=== PATIENT | male | born 1985 | race Caucasian/White ===

== ENCOUNTER 2023-06-12 08:29 | Outpatient (CLI) | payer BC, SELFPAY | END 2023-06-12 08:30 | disposition home or self-care (01) | PROVIDERS: PCP Family Medicine; Visit Provider Family Medicine | DX: Z00.00 Encounter for general adult medical examination without abnormal findings (principal); Z13.6 Encounter for screening for cardiovascular disorders; Z13.1 Encounter for screening for diabetes mellitus | CPT/HCPCS: 80048; 80061 ==

== ENCOUNTER 2024-07-01 13:18 | Outpatient (CLI) | payer BC, SELFPAY ==
--- OUTSIDE RECORDS SUMMARY | 2024-07-01 13:25 | XMS_ITS | Clinical Summary ---
Author Organization [facility] Address [place], [place] [address] Care Team Providers Care Refractory Products Supervisor Name Role Phone Pcp, No Primary Care Provider Unavailabl e Allergies No known active allergies Medications Medication Sig Dispensed Refills Start Date End Date Status fluticasone (50 mcg per actuation) nasal solution (FLONASE)Indications: Post-nasal drip Inhale 1 [place] into both nostrils once daily. 1 Bottle 0 08/01/2015 Active Immunizations Name Administration Dates Next Due Tdap 01/28/2011 Social History Tobacco Use Types Packs/Day Years Used Date Smoking Tobacco: Never Smokeless Tobacco: Never Tobacco Cessation:Counseling Given: Yes Alcohol Use Standard Drinks/Week Comments Not Asked 0 (1 standard drink = 0.6 oz pur e alcohol) Sex and Gender Information Value Date Recorded Sex Assigned at Not on file Gender Identity Not on file Sexual Orientation Not on file Obstetrics History Last Filed Vital Signs Vital Sign Reading Time Taken Comments Blood Pressure 119/77 03/31/2023 4:14 PM CDT tow er Pulse 83 03/31/2023 4:14 PM CDT Temperature 36.9 ??C (98.5 ??F) 08/01/2015 4:45 PM CD T Respiratory Rate 16 05/24/2015 3:07 PM CDT Oxygen Saturation 97% 03/31/2023 4:14 PM CDT Inhaled Oxygen Concentration - - Weight 112 kg (247 lb) 03/31/2023 4:14 PM CDT Height - - Body Mass Index - - Plan of Treatment Health Maintenance Due Date Last Done Comments Depression screening for age 12+ 1998 HIV for age 15-65 2001 BMI (ht and wt on same day) for age 18+ 2004 Hepatitis C screening for ag e 18-79 2004 Tetanus booster 01/28/2021 01/28/2011 Lipids for age 35-44 2021 COVID-19 vaccine series (2022- season) 2023 Influenza for age 9-49 07/24/2024 Tdap Completed 01/28/2011 Pneumococcal series for age 6-64 Aged Out No longer eligible based on patient's age to complete this topic Care Teams Refractory Products Supervisor Relationship Specialty Start Date End Date Pcp, No . PCP - General 05/17/15
--- OUTSIDE RECORDS SUMMARY | 2024-07-01 13:25 | XMS_ITS | Referral Summary ---
Author Organization [facility] Address [address] [place] [id number] Care Team Providers Care Attractions Associate Name Role Phone No Ref-Primary, Physician Primary Care Provider Allergies No known active allergies Medications Medication Sig Dispensed Refills Start Date End Date Status benzonatate (TESSALON) 100 MG capsule TAKE 1 CAPSULE BY MOUTH THREE TIMES A DAY NEEDED *DO NOT BREAK CHEW, DISSOLVE, CUT, OR CRUSH* 0 04/17/2019 Active fluticasone (FLONASE) 50 MCG/ACT nasal spray [place] 1 spray in nostril 08/01/2015 Active guaiFENesin-codeine (GUAIFENESIN AC) 100-10 MG/5ML syrupIndications:Cough Take 10 mLs by mouth At Bedtime for cough 120 mL 04/21/2019 Active Active Problems Problem Noted Date Diagnosed Date CARDIOVASCULAR SCREENING; LDL GOAL LESS THAN 160 06/04/2017 Immunizations Name Administration Dates Next Due Influenza Vaccine >6 months,quad, PF 11/17/2017 TDAP Vaccine (Adacel) 01/28/2011 Social History Tobacco Use Types Packs/Day Years Used Date Smoking Tobacco: Never Smokeless Tobacco: Current Alcohol Use Standard Drinks/Week Comments Yes 0 (1 standard drink = 0.6 oz pur e alcohol) Alcoholic Drinks/day: occas PHQ-2 Answer Date Recorded PHQ-2 Score 0 12/01/2018 Sex and Gender Information Value Date Recorded Sex Assigned at Not on file Gender Identity Not on file Sexual Orientation Not on file Last Filed Vital Signs Vital Sign Reading Time Taken Comments Blood Pressure 110/70 04/21/2019 4:42 PM CDT Pulse 113 04/21/2019 4:42 PM CDT Temperature 37.4 ??C (99.4 ??F) 04/21/2019 4:42 PM CD T Respiratory Rate 18 04/21/2019 4:42 PM CDT Oxygen Saturation 96% 04/21/2019 4:42 PM CDT Inhaled Oxygen Concentration - - Weight 93.9 kg (207 lb) 04/27/2019 6:30 PM CDT Height 193 cm (6' 4) 04/27/2019 6:30 PM CDT Body Mass Index 25.2 04/27/2019 6:30 PM CDT Plan of Treatment Not on file Care Teams Attractions Associate Relationship Specialty Start Date End Date No Ref-Primary, Physician PCP - General 04/21/19
--- OUTSIDE RECORDS SUMMARY | 2024-07-01 13:25 | XMS_ITS | Clinical Summary ---
Author Organization [facility] Address [address] [place] [id number] Care Team Providers Care Sas Clinical Programmer Name Role Phone No Ref-Primary, Physician Primary Care Provider Allergies No known active allergies Medications Medication Sig Dispensed Refills Start Date End Date Status benzonatate (TESSALON) 100 MG capsule TAKE 1 CAPSULE BY MOUTH THREE TIMES A DAY NEEDED *DO NOT BREAK CHEW, DISSOLVE, CUT, OR CRUSH* 0 04/17/2019 Active fluticasone (FLONASE) 50 MCG/ACT nasal spray [place] 1 spray in nostril 08/01/2015 Active guaiFENesin-codeine (GUAIFENESIN AC) 100-10 MG/5ML syrupIndications:Cough Take 10 mLs by mouth At Bedtime for cough 120 mL 04/21/2019 Active Active Problems Problem Noted Date Diagnosed Date CARDIOVASCULAR SCREENING; LDL GOAL LESS THAN 160 06/04/2017 Immunizations Name Administration Dates Next Due Influenza Vaccine >6 months,quad, PF 11/17/2017 TDAP Vaccine (Adacel) 01/28/2011 Family History Medical History Relation Comments Hypertension Father Other Cancer Maternal Grandfather unknown Other Cancer Paternal Uncle unknown Relation Status Comments Father Alive Maternal Grandfather Mother Alive Paternal Uncle Sister Alive Social History Tobacco Use Types Packs/Day Years [...] of Treatment Not on file Care Teams Sas Clinical Programmer Relationship Specialty Start Date End Date No Ref-Primary, Physician PCP - General 04/21/19
== END 2024-07-01 13:19 | disposition home or self-care (01) ==
PROVIDERS: PCP Family Medicine; Visit Provider Family Medicine
DX: Z13.228 Encounter for screening for other metabolic disorders (principal); Z13.220 Encounter for screening for lipoid disorders
CPT/HCPCS: 80048; 80061

== ENCOUNTER 2025-05-29 08:15 | Outpatient (CLI) | payer BC, SELFPAY | END 2025-05-29 08:16 | disposition home or self-care (01) | PROVIDERS: PCP Family Medicine; Visit Provider Family Medicine | DX: Z13.1 Encounter for screening for diabetes mellitus (principal); Z13.6 Encounter for screening for cardiovascular disorders | CPT/HCPCS: 80048; 80061 ==